=== PATIENT | female | born 1950 | race Caucasian/White ===

== ENCOUNTER → 2017-01-26 | Outpatient (CLI) | payer MEDICARE, OTHER ==
[~2017-01-26] MED LIST: ALDACTONE25 MG PO; ALEVE220 M1 PO; COREG12.5 MG PO; MAXZIDE-751 TAB PO; PERCOCET 5-3251 EACH PO; PREMARIN0.9 MG PO; TYLENOL EXTRA500 MG PO; ULTRAM50 MG PO; VALIUM5 MG PO; XARELTO10 MG PO
[2017-01-26 11:54] LABS: BASOPHIL # 0.1 K/uL (0.0-0.2); BASOPHIL % 0.9 %; EOSINOPHIL # 0.2 K/uL (0.0-0.5); EOSINOPHIL % 3.3 %; HEMATOCRIT 43.1 % (33.0-46.0); HEMOGLOBIN 14.5 g/dL (10.0-15.0); IMMATURE GRANULOCYTE % 0.6 %; MCH 30.9 pg (27.0-34.0); MCHC 33.6 gm/dL (32.0-36.5); MCV 91.7 fl (83.0-98.0); MONOCYTE # 0.5 K/uL (0.0-1.0); MONOCYTE % 7.8 %; MPV 12.9 fl (9.4-12.4); NEUTROPHIL # (ANC) 3.6 K/uL (1.8-7.8); NEUTROPHIL % 56.4 %; NRBC % 0 /100WBC (0-0.00); PLATELET COUNT 220 K/uL (150-450); RDW-CV 12.3 % (11.9-14.6); WBC 6.4 K/uL (4.0-11.0)
[2017-01-26 12:12] LABS: TOTAL BILIRUBIN 0.9 mg/dL (0.0-1.5)
== END ==
LOC: LNHI 11:37
PROVIDERS: Internal Medicine Interventional Cardiology
DX: I10 Essential (primary) hypertension (principal); R94.31 Abnormal electrocardiogram [ECG] [EKG]